=== PATIENT | female | born 1980 | race Caucasian/White ===

== ENCOUNTER 2017-07-31 12:20 | Emergency (ER) | payer SELFPAY ==
[~2017-07-31] VITALS: Ht 157.5 cm; Wt 53.0 kg
[2017-07-31] MEDS ORDERED: ONDANSETRON HCL 4MG/2ML VIAL IV STA (12:35)
[2017-07-31] MEDS ORDERED: SODIUM CHLORIDE 0.9% 1,000 ML IV ONE (12:35)
[2017-07-31 12:57] LABS: BASOPHILS % 1.3 % (0.0-2.0); EOSINOPHILS % 1.4 % (0.0-5.0); HEMATOCRIT. 41.2 % (36.0-48.0); HEMOGLOBIN. 13.9 g/dL (12.0-16.0); LYMPHOCYTES % 24.6 % (20.0-50.0); MEAN CORPUSCULAR HEMOGLOBIN 32.7 pg (28.0-32.0); MEAN CORPUSCULAR VOLUME 97.2 fL (81.0-99.0); MEAN PLATELET VOLUME 7.9 fl (7.4-10.4); MONOCYTES % 6.8 % (2.0-8.0); NEUTROPHILS % 65.9 % (40.0-76.0); PLATELET 292 x1000/uL (130-400); RED BLOOD CELL COUNT 4.24 mill/uL (4.2-5.4); RED CELL DISTRIBUTION WIDTH 13.1 % (11.6-14.6)
[2017-07-31 13:03] LABS: CHLORIDE 112 mEq/L (98-107)
[2017-07-31 14:27] LABS: HCG SCREEN NEGATIVE
[2017-07-31 15:08] VITALS: BP 113/70
== END 2017-07-31 15:12 | disposition home or self-care (01) ==
LOC: ER 12:31
DX: R55 Syncope and collapse (principal); F31.9 Bipolar disorder, unspecified; R07.9 Chest pain, unspecified; F12.10 Cannabis abuse, uncomplicated
CPT/HCPCS: 36415; 80053; 84703; 85025; 93005; 96361; 96374; 99285; J2405; J7030; Z7610